=== PATIENT | male | born 1955 | race Caucasian/White ===

== ENCOUNTER 2022-03-18 16:26 | Inpatient (IN) | payer OTHER, MEDICAID ==
[2022-03-18] VITALS (10 sets, daily range): BP systolic 112–163; BP diastolic 57–97
[~2022-03-18] VITALS: Ht 177.8 cm; Wt 90.1 kg
[2022-03-18] MEDS ORDERED: HEPARIN for IV BOLUS 10,000 UNIT/10 ML VIAL. ONE (16:45)
[2022-03-18] MEDS ORDERED: MIDAZOLAM HCL/PF 2 MG/2 ML VIAL. ONE (16:45)
[2022-03-18] MEDS ORDERED: NITROGLYCERIN 200 MCG/2 ML SYRINGE FOR CATH/VASC LAB. ONE (16:45)
[2022-03-18] MEDS ORDERED: VERAPAMIL 5 MG/2 ML VIAL. ONE (16:45)
[2022-03-18] MEDS ORDERED: fentaNYL PF VIAL 100 MCG/2 ML VIAL ONE (16:45)
[2022-03-18] MEDS ORDERED: IODIXANOL 320 MG/ML 100 ML VIAL. ONE ×2 (16:46→16:47)
[2022-03-18] MEDS ORDERED: LIDOCAINE 1% Multi-Dose 20 ML VIAL. ONE (16:46)
[2022-03-18 16:51] LABS: BASO # 0.1 x10^3/uL (0.0-0.2); BASO % 1 % (0-3); EOS # 0.1 x10^3/uL (0.0-0.7); EOS % 1 % (0-3); HEMATOCRIT 50.5 % (39.0-53.0); HEMOGLOBIN 16.6 g/dL (13.0-17.5); LYMPH # 2.9 x10^3/uL (1.0-4.8); LYMPH % 28 % (24-48); MEAN CORPUSCULAR HEMOGLOBIN 29 pg (25-35); MEAN CORPUSCULAR HGB CONC 33 g/dL (31-37); MEAN CORPUSCULAR VOLUME 89 fL (79-100); MONO # 0.6 x10^3/uL (0.0-1.1); MONO % 6 % (0-9); NEUT # 6.9 x10^3/uL (1.8-7.7); NEUT % 64 % (31-73); PLATELET COUNT 356 x10^3/uL (140-400); RED BLOOD COUNT 5.65 x10^6/uL (4.30-5.70); RED CELL DISTRIBUTION WIDTH 13.7 % (11.5-14.5); WHITE BLOOD COUNT 10.7 x10^3/uL (4.0-11.0)
--- NOTE | 2022-03-18 16:56 | RAD ---
EXAM: CT head without contrast INDICATION: Head trauma COMPARISON: None TECHNIQUE: Axial CT imaging through the head without intravenous contrast. Sagittal and coronal refor mats were obtained. One or more of the following individualized dose reduction techniques were utilized for this examinat ion: 1. Automated exposure control 2. Adjustment of the mA and/or kV according to patient size 3. Use of iterative reconstruction technique. FINDINGS: No intracranial hemorrhage, acute infarct, or mass lesion. Ventricles and sulci are prominent. Muñoz-w franco matter differentiation is maintained. The skull and scalp are intact. Paranasal sinuses and mast oid air cells are clear. Globes and orbits are intact. IMPRESSION: No acute intracranial abnormality. Electronically signed by: Liliana Mcdermott MD (03/18/2022 4:54 PM) [id number]
[2022-03-18 16:59] LABS: PROTHROMBIN TIME PATIENT 13.1 SEC (11.7-14.0)
[2022-03-18] MEDS ORDERED: PHENYLEPHRINE in 0.9% NACL PF 1 MG/10 ML SYRINGE. IV ONE (17:08)
[2022-03-18] MEDS ORDERED: ATROPINE 1 MG/10 ML DISP.SYRINGE. ONE (17:08)
[2022-03-18] MEDS ORDERED: TIROFIBAN 12.5MG -0.9% NS 250 ML IV ONE (17:09)
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
[2022-03-18 17:10] LABS: CALCIUM 9.3 mg/dL (8.5-10.1); CREATININE 2.4 mg/dL (0.7-1.3); GFR 27.1
[2022-03-18] MEDS: TIROFIBAN 12.5MG -0.9% NS 250 ML IV PRN (17:15)
[2022-03-18 17:20] LABS: ALBUMIN 4.1 g/dL (3.4-5.0); TOTAL BILIRUBIN 1.1 mg/dL (0.2-1.0); TOTAL PROTEIN 8.1 g/dL (6.4-8.2)
[2022-03-18] MEDS ORDERED: PRASUGREL 10 MG TABLET. ONE (17:22)
[2022-03-18] MEDS ORDERED: VERAPAMIL 5 MG/2 ML VIAL. IART ONE (17:30)
[2022-03-18] MEDS ORDERED: fentaNYL PF VIAL 100 MCG/2 ML VIAL IV ONE (17:30)
[2022-03-18] MEDS ORDERED: NITROGLYCERIN 200 MCG/2 ML SYRINGE FOR CATH/VASC LAB. IART ONE (17:30)
[2022-03-18] MEDS ORDERED: LIDOCAINE 2% Multi-Dose 20 ML VIAL. IJ ONE (17:30)
[2022-03-18] MEDS ORDERED: MIDAZOLAM HCL/PF 2 MG/2 ML VIAL. IV ONE (17:30)
[2022-03-18] MEDS ORDERED: IODIXANOL 320 MG/ML 100 ML VIAL. IART ONE (17:30)
[2022-03-18] MEDS ORDERED: NITROGLYCERIN 200 MCG/2 ML SYRINGE FOR CATH/VASC LAB. ICAR ONE (17:30)
[2022-03-18] MEDS ORDERED: PRASUGREL 10 MG TABLET. PO ONE (17:30)
[2022-03-18] MEDS ORDERED: HEPARIN for IV BOLUS 10,000 UNIT/10 ML VIAL. IART ONE (17:30)
[2022-03-18] MEDS ORDERED: HEPARIN for IV BOLUS 10,000 UNIT/10 ML VIAL. IV ONE (17:30)
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
--- NOTE | 2022-03-18 18:48 | NUR ---
Patient arrived on unit at 1755 accompanied by scientific laboratory supervisor RN and tech. Patient alert and oriented, able to answer admission questions when asked. Patient educated on TR band use and not to use his right hand. Vascular site looks clean dry and intact, TR band in place. Family at bedside.
[2022-03-19] VITALS (13 sets, daily range): BP systolic 109–179; BP diastolic 66–99
[2022-03-19] MEDS: TIROFIBAN 12.5MG -0.9% NS 250 ML IV PRN (02:25)
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
[2022-03-19] MEDS ORDERED: hydrALAZINE 20 MG/ML VIAL. IVP PRN (08:00)
[2022-03-19] MEDS ORDERED: ONDANSETRON PF 4 MG/2 ML VIAL. IVP PRN (08:00)
[2022-03-19] MEDS ORDERED: NICOTINE 21MG PATCH. TD PRN (08:00)
[2022-03-19] MEDS ORDERED: traMADol 50 MG TABLET PO PRN (08:00)
[2022-03-19] MEDS ORDERED: ACETAMINOPHEN 325 MG TABLET. PO PRN (08:00)
--- NOTE | 2022-03-19 08:14 | CARD ---
MR#: [id number] Date of Study: 03/18/2022 Ordering Physician: DANIELA ARREDONDO, Referring Physician: DANIELA ARREDONDO, Tech: RT Dilcia(R) APPROVED REPORT Technologist: Navya Walter RT(R) Nurse: Priti Herndon RN Procedure(s) performed: fl time: 5.5 min dose: 48 gycm2 contrast: 62 ml moderate sedation: 35 min LHC, Coronary angiography PCI of the RCA for acute LA INDICATION The indication(s) include : STEMI . [facility] Clinical Frailty Scale [facility] Clinical Frailty Scale: Moderately Frail Heart Failure Heart Failure: Yes If Yes, Newly Diagnosed: Yes If Yes, HF Type: Diastolic Systolic If Yes, NYHA Class: Class III CASE TECHNIQUE IV conscious sedation was used throughout procedure with appropriate monitoring and was performed in the presence of a registered nurse who was an independent trained observer other than the physician p erforming the procedure. During this case, Fluoroscopy and Iso-osmolar contrast were used for imaging . Specimen(s) Removed: N/A Estimated Blood loss: 10 cc's. PROCEDURE NARRATIVE Clinical information: 66-year-old male without significant past medical history presented with acute chest pain and syncopa l episode. Patient was found to have inferolateral ST elevation LA and he was taken emergently to [facility] catheterization laboratory after appropriate informed verbal consent. Procedure details: Under 1% lidocaine local anesthesia a 6 [place]ambian sheath was placed in the right radial artery. Diagnos tic angiography was then performed with a 6 [place]ian TIG catheter. Left ventricular end-diastolic pres sure was obtained with a JR4 guide catheter and a pullback was performed. Findings: Aorta 90/60 LVEDP 25 mmHg No LV to aortic pullback gradient Coronary angiography: Left main is a short caliber vessel with normal angiographic appearance LAD is a moderate caliber vessel with proximal 50% stenosis Left circumflex is a small caliber nondominant vessel with mild diffuse irregularities up to 30% RCA is a large-caliber dominant vessel with a mid 100% occlusion. RPDA and RPL are large caliber ves sels with mild luminal irregularities Interventional technique: Heparin and Tirofiban was used for anticoagulation. Through a 6fr JR 4 guide catheter, a 0.014'' Prow ater wire was used to cross the occlusion. Balloon angioplasty was performed with a 3.0/15 mm balloon and the lesion was stented with a 4.0 x 38 Resolute MELODY. The stent was then post-dilated in the prox imal segment with a 4.5mm non-compliant balloon. Final angiography demonstrated excellent stent expan anand with REEMA 3 flow in the vessel without evidence of guide or wire related complications. At case completion the radial sheath was removed and hemostasis was achieved with a radial band. The patient received 60mg of Prasugrel at case completion. No acute complications. REEMA Flow REEMA Flow (Pre-Intervention): REEMA-0 REEMA Flow (Post-Intervention): REEMA-3 Conclusion 1. Inferior STEMI 2. Successful PCI of the RCA with implantation of a Resolute 4.0/38 MELODY. 3. Acute diastolic HF with LVEDP of 25 mm Hg. Recommendations ASA 81mg daily Prasugrel 10mg daily High dose statin therapy Cardiac rehab Signed by : Daniela Arredondo, Electronically Approved : 03/19/2022 08:14:13
[2022-03-19 08:46] LABS: ALBUMIN 3.6 g/dL (3.4-5.0); CALCIUM 9.1 mg/dL (8.5-10.1); CREATININE 1.9 mg/dL (0.7-1.3); GFR 35.4; POTASSIUM 4.4 mmol/L (3.5-5.1); TOTAL BILIRUBIN 0.8 mg/dL (0.2-1.0); TOTAL PROTEIN 7.3 g/dL (6.4-8.2)
[2022-03-19 08:51] LABS: CHOLESTEROL/HDL RATIO 5.1
[2022-03-19] MEDS ORDERED: IV DEXTROSE 5% 250 ML BAG. IV PRN (09:45)
[2022-03-19] MEDS ORDERED: PANTOPRAZOLE 40 MG TABLET.DR. PO ONE (09:45)
[2022-03-19] MEDS ORDERED: DEXTROSE 50% 25 GM / 50ML DISP.SYRIN. IV PRN (09:45)
[2022-03-19] MEDS ORDERED: PRASUGREL 10 MG TABLET. PO ONE (09:45)
[2022-03-19] MEDS: ASPIRIN ENTERIC COATED 81 MG TABLET.DR. PO SCH (09:52)
[2022-03-19] MEDS: INSULIN LISPRO 300 UNITS/3 ML VIAL. SQ SCH ×3 (11:30→21:00)
--- NOTE | 2022-03-19 18:38 | PDOC ---
CARDIOLOGY PROGRESS NOTE SUBJECTIVE: No new events. Feels well OBJECTIVE: Vital Signs/I&O: Vital Signs Date Time Temp Pulse Resp B/P (MAP) Pulse Ox O2 Delivery O2 Flow Rate FiO2 03/19/22 15:00 98.6 67 23 109/84 (92) 96 Room Air 98.6 03/18/22 17:51 2.0 I & O 03/18/22 03/18/22 03/19/22 15:00 23:00 07:00 Intake Total 250 ml 400 ml Output Total 0 ml 200 ml Balance 250 ml 200 ml Objective: GEN.: No apparent distress. Alert and oriented. HEENT: Head is normocephalic, atraumatic NECK: Supple. LUNGS: Clear to auscultation. HEART: RRR, S1, S2 present. Peripheral pulses intact ABDOMEN: Soft, nontender. Positive bowel sounds. EXTREMITIES: Without any cyanosis. NEUROLOGIC: Normal speech, normal tone PSYCHIATRIC: Normal affect, normal mood. SKIN: No ulcerations CURRENT MEDICATIONS: Current Medications Medications (Trade) Dose Ordered Sig/Shireen Route PRN Reason Start Time Stop Time Status Last Admin Dose Admin Aspirin (Ecotrin) 81 mg DAILYWBKFT PO 03/19/22 09:30 03/19/22 09:52 Amlodipine Besylate (Norvasc) 10 mg 1X ONCE PO 03/19/22 09:30 03/19/22 09:36 DC 03/19/22 09:52 Pantoprazole Sodium (Protonix) 40 mg 1X ONCE PO 03/19/22 09:45 03/19/22 09:46 DC 03/19/22 09:52 Prasugrel (Effient) 10 mg 1X ONCE PO 03/19/22 09:45 03/19/22 09:48 DC 03/19/22 09:52 DIAGNOSTIC TESTING: Labs reviewed Labs: Laboratory Tests 03/19/22 04:00 Laboratory Tests Test 03/19/22 04:00 03/19/22 17:42 Sodium Level 139 mmol/L (136-145) Potassium Level 4.4 mmol/L (3.5-5.1) Chloride Level 105 mmol/L (98-107) Carbon Dioxide Level 21 mmol/L (21-32) Anion Gap 13 (6-14) Blood Urea Nitrogen 25 mg/dL (8-26) Creatinine 1.9 mg/dL (0.7-1.3) H Estimated GFR (Cockcroft-Gault) 35.4 BUN/Creatinine Ratio 13 (6-20) Glucose Level 131 mg/dL (70-99) H Calcium Level 9.1 mg/dL (8.5-10.1) Total Bilirubin 0.8 mg/dL (0.2-1.0) Aspartate Amino Transf (AST/SGOT) 415 U/L (15-37) H Alkaline Phosphatase 67 U/L (46-116) Troponin I High Sensitivity 149172 ng/L (4-75) H Total Protein 7.3 g/dL (6.4-8.2) Albumin 3.6 g/dL (3.4-5.0) Albumin/Globulin Ratio 1.0 (1.0-1.7) Cholesterol Level 173 mg/dL (0-200) LDL Cholesterol, Calculated 123 mg/dL (0-100) H VLDL Cholesterol, Calculated 16 mg/dL (0-40) Non-HDL Cholesterol Calculated 139 mg/dL (0-129) H Cholesterol/HDL Ratio 5.1 Glucose (Fingerstick) 113 mg/dL (70-99) H ASSESSMENT: 1. Inferior STEMI 2. GINA 3. HTN PLAN: 1. Continue asa, statin, prasurgrel and amlodipine. 2. Check echo in a.m and repeat EKG. Supportive care. Justicifation of Admission Dx: Justifications for Admission: Justification of Admission Dx: N/A DANIELA SOARES MD March 19, 2022 18:38
[2022-03-19] MEDS ORDERED: ATORVASTATIN CALCIUM 40 MG TABLET. PO SCH (21:00)
[2022-03-20 03:00] VITALS: BP 121/75
[2022-03-20 03:08] LABS: HEMOGLOBIN A1C 5.5 % (4.8-5.6)
--- NOTE | 2022-03-20 06:05 | EKG ---
[facility] [address] [place] [address] Test Date: 2022-03-18 Test Time: 16:29:23 Pat Name: MONICA MEYERS Department: Room: [facility] 1 Gender: M Supervisor [employer]: : 1955 Requested By: AMRILIA RODGERS Order Number: [id number] Reading MD: Zion Arredondo MD Measurements Intervals Madeline Rate: 67 P: MN: QRS: 37 QRSD: 82 T: 105 QT: 380 QTc: 404 Interpretive Statements SR INFERIOR STEMI Electronically Signed On 03-27-2022 9:54:29 CDT by Zion Arredondo MD
[2022-03-20 07:00] VITALS: BP 120/71
[2022-03-20] MEDS: INSULIN LISPRO 300 UNITS/3 ML VIAL. SQ SCH ×2 (07:30→11:25)
[2022-03-20] MEDS ORDERED: PRASUGREL 10 MG TABLET. PO SCH (08:00)
[2022-03-20] MEDS: ASPIRIN ENTERIC COATED 81 MG TABLET.DR. PO SCH (08:13)
--- NOTE | 2022-03-20 09:32 | PDOC ---
NAYE CONTRERAS APRN 03/20/22 0932: CARDIO Progress Notes Date and Time Date of Service 03/20/22 Time of Evaluation 0930 Subjective Subjective: No Chest Pain, No shortness of breath, No Palpitations Vitals Vitals Vital Signs Date Time Temp Pulse Resp B/P (MAP) Pulse Ox O2 Delivery O2 Flow Rate FiO2 03/20/22 08:13 79 120/71 03/20/22 07:38 Room Air 03/20/22 07:00 98.5 34 100 98.5 Weight Weight [ ] Input and Output Intake and Output Intake and Output 03/20/22 07:00 Intake Total 1450 ml Output Total 900 ml Balance 550 ml Intake Oral 1450 ml Output Urine Total 900 ml # Voids 1 # Bowel Movements 2 Laboratory Labs Laboratory Tests Test 03/19/22 17:42 03/19/22 21:01 Glucose (Fingerstick) 113 mg/dL (70-99) 123 mg/dL (70-99) Physical Exam HEENT: Neck Supple W Full Motion Chest: Symmetric LUNGS: Clear to Auscultation Heart: S1S2, RRR Abdomen: Soft N/T Extremities: Other (right radial arteriotomy site soft, clean, and dry. No hematoma present. Neurovascular status intact ) Neurology: alert, oriented, follow commands Assessment Assessment 1. Inferior STEMI 2. CAD s/p PCI/MELODY to RCA 3. Acute diastolic CHF; appears compensated 4. GINA; Cr down to 1.9 5. HTN 6. Dyslipidemia; statin 7. Mild transaminitis Recommendations Echo today Secondary prevention Continue asa, statin, prasurgrel and amlodipine. Add BB Risk stratification modification Cardiac rehab referral Follow up in our office as scheduled Okay to discharge later today follow echo, EKG Justicifation of Admission Dx: Justifications for Admission: Justification of Admission Dx: N/A DANIELA SOARES MD 03/21/22 0855: CARDIO Progress Notes Plan Plan Late entry for 03/20/2022 Patient seen and examined. Agree with above nurse practitioner note NAYE CONTRERAS APRN March 20, 2022 09:32 DANIELA SOARES MD March 21, 2022 08:55
[2022-03-20] MEDS ORDERED: METOPROLOL SUCC 24HR ER 25 MG TAB.ER.24H. PO SCH (10:30)
[2022-03-20] MEDS ORDERED: ATOR40TA59 PO (10:58)
[2022-03-20] MEDS ORDERED: ASPI-886 PO (10:58)
[2022-03-20] MEDS ORDERED: AMLO-186 PO (10:58)
[2022-03-20] MEDS ORDERED: PRAS10TA9 PO (10:58)
[2022-03-20] MEDS ORDERED: METO-239 PO (10:58)
[2022-03-20 11:00] VITALS: BP 134/70
--- NOTE | 2022-03-20 11:43 | PDOC ---
[facility] PROGRESS NOTE Date of Service DOS: DATE: 03/20/22 TIME: 11:43 Chief Complaint Chief Complaint Acute OR Status post cardiac stent in the RCA History of Present Illness History of Present Illness 03/20/2020 Patient seen and examined Discussed with RN Discussed with case management Chart reviewed The plan is to discharge this afternoon Vitals/I&O Vitals/I&O: Vital Signs Date Time Temp Pulse Resp B/P (MAP) Pulse Ox O2 Delivery O2 Flow Rate FiO2 03/20/22 11:00 98.4 74 24 134/70 (91) 100 Room Air 98.4 I & O 03/19/22 03/19/22 03/20/22 15:00 23:00 07:00 Intake Total 750 ml 300 ml 400 ml Output Total 300 ml 600 ml Balance 450 ml -300 ml 400 ml Physical Exam General: Alert, Oriented X3, Cooperative, No acute distress Abdomen: Normal bowel sounds, Soft, No tenderness, No hepatosplenomegaly, No masses, Other (Midline scarred sternum to pelvis) Extremities: No clubbing, No cyanosis, No edema, Normal pulses, No tenderness/swelling Skin: No rashes, No breakdown, No significant lesion Labs Labs: Laboratory Tests Test 03/19/22 17:42 03/19/22 21:01 Glucose (Fingerstick) 113 mg/dL (70-99) 123 mg/dL (70-99) Assessment and Plan Assessmemt and Plan Problems Medical Problems: (1) STEMI (ST elevation myocardial infarction) Status: Acute Discharge see dictation Comment Review of Relevant I have reviewed the following items jazzmine (where applicable) has been applied. Medications: Current Medications Medications (Trade) Dose Ordered Sig/Shireen Route PRN Reason Start Time Stop Time Status Last Admin Dose Admin Prasugrel (Effient) 10 mg DAILYWBKFT PO 03/20/22 08:00 03/20/22 08:13 Atorvastatin Calcium (Lipitor) 40 mg QHS PO 03/19/22 21:00 03/19/22 20:57 Amlodipine Besylate (Norvasc) 10 mg DAILY PO 03/20/22 09:00 03/20/22 09:32 DC 03/20/22 08:13 Metoprolol Succinate (Toprol Xl) 25 mg DAILY PO 03/20/22 10:30 03/20/22 10:14 Justifications for Admission Other Justification CASTLE,NIAL K III DO March 20, 2022 11:43
[2022-03-20 15:00] VITALS: BP 133/84
--- NOTE | 2022-03-20 16:33 | NUR ---
After echocardiogram completion, Dr. Arredondo gave the approval for patient to discharge. Medications called to patient's pharmacy and are ready to be picked up upon discharge. Post cardiac cath instructions given to patient, patient's sister, Alicia, and patient's niece, Lucille, emphasis given on medication regimen. Patient given a card for Dr. Arredondo with the follow up appointment date on it. Patient discharged at 1630 accompanied by family.
--- NOTE | 2022-03-20 17:10 | CARD ---
MR#: [id number] Date of Study: 03/20/2022 Ordering Physician: NAYE CONTRERAS, Referring Physician: NAYE CONTRERAS, Tech: Tristin Romero [facility] APPROVED REPORT EXAM: Two-dimensional and M-mode echocardiogram with Doppler and color Doppler. Other Information Quality : FairHR: 80bpm Rhythm : NSRTechnically limited study due to body habitus. INDICATION Cardiac Disease: CAD Inferior wall STEMI RISK FACTORS Hypertension Hyperlipidemia Smoking 2D DIMENSIONS Left Atrium(2D)3.5 (1.6-4.0cm)IVSd1.0 (0.7-1.1cm) Aortic Root(2D)3.0 (2.0-3.7cm)LVDd4.8 (3.9-5.9cm) LVOT Diameter2.0 (1.8-2.4cm)PWd1.0 (0.7-1.1cm) LVDs4.0 (2.5-4.0cm)FS (%) 16.1 % SV35.7 mlLVEF(%)33.9 (>50%) Aortic Valve AoV Peak Tomas.95.8cm/sAoV VTI17.6cm AO Peak GR.3.7mmHgLVOT VTI 14.37cm AO Mean GR.2mmHg Mitral Valve MV E Vdnbkduz10.4cm/sMV DECEL [id number] MV A Fxaoykna94.5cm/sE/A Ratio1.0 TDI Lateral E' P. V6.95cm/sMedial E' P. V5.60cm/s E/Lateral E'8.8E/Medial E'11.0 Pulmonary Valve PV Peak Zmiiyacn551.4cm/s Tricuspid Valve TR P. Osnodsvv887cn/sTR Peak Gr.29mmHg LEFT VENTRICLE The left ventricle is normal size. There is normal left ventricular wall thickness. The left ventricu lar systolic function is mildly decreased. EF 45-50% There is inferior wall hypokinesis. Tissue Doppl er imaging reveals moderate left ventricular diastolic dysfunction. No left ventricle thrombus noted on this study. There is no ventricular septal defect visualized. There is no left ventricular aneurys m. There is no mass noted in the left ventricle. RIGHT VENTRICLE The right ventricle is mildly dilated. There is normal right ventricular wall thickness. The right ve ntricular systolic function is normal. ATRIA The left atrium size is normal. The right atrium size is normal. The interatrial septum is intact wit h no evidence for an atrial septal defect or patent foramen ovale as noted on 2-D or Doppler imaging. AORTIC VALVE The aortic valve is normal in structure and function. Doppler and Color Flow revealed no significant aortic regurgitation. There is no significant aortic valvular stenosis. There is no aortic valvular v egetation. MITRAL VALVE The mitral valve is normal in structure and function. There is no evidence of mitral valve prolapse. There is no mitral valve stenosis. Doppler and Color-flow revealed trace mitral regurgitation. TRICUSPID VALVE The tricuspid valve is normal in structure and function. Doppler and Color Flow revealed trace tricus pid regurgitation. There is no tricuspid valve prolapse or vegetation. There is no tricuspid valve st enosis. PULMONIC VALVE Doppler and Color Flow revealed no pulmonic valvular regurgitation. There is no pulmonic valvular victor manuel nosis. GREAT VESSELS The aortic root is normal in size. The ascending aorta is normal in size. The pulmonary artery is nor mal. The IVC is normal in size and collapses >50% with inspiration. PERICARDIAL EFFUSION There is no pleural effusion. There is no evidence of significant pericardial effusion. Critical Notification Critical Value: No <Conclusion> The left ventricular systolic function is mildly decreased. EF 45-50% There is inferior wall hypokinesis. Signed by : Zion Arredondo, Electronically Approved : 03/20/2022 17:10:32
--- NOTE | 2022-03-20 20:36 | DS ---
DATE OF DISCHARGE: 03/20/2022 ADMITTING DIAGNOSIS: Acute myocardial infarction. DISCHARGE DIAGNOSES: 1. Status post cardiac catheterization with stent placement to the RCA. 2. Elevated troponin to 155,853. CONSULTS: Cardiology. PROCEDURES: Cardiac catheterization. HOSPITAL COURSE: The patient is a pleasant middle-aged male who presented with chest pain, was noted to have EKG changes and elevated troponin. He was admitted. We have consulted Cardiology, was taken for a cath and he got a stent to the RCA. His initial troponin was 13, that raised to as high as 155,000. Today, when I saw him, he is doing great and he is tolerating his meals and his pills. We plan to discharge. DISPOSITION: Home. ACTIVITY: As tolerated. DIET: Cardiac. MEDICATIONS: Amlodipine 5 a day, aspirin 81 a day, atorvastatin 40 a day, metoprolol 25 a day and Effient [address]: Sue TID: [id number]
== END 2022-03-20 16:30 | disposition home or self-care (01) | DRG 246 ==
LOC: ER 16:26 → 1 WEST ICU 17:09
PROVIDERS: ADMIT Internal Medicine; ATTEND Internal Medicine
PROC: 027034Z Dilation of Coronary Artery, One Artery with Drug-eluting Intraluminal Device, Percutaneous Approach (ICD-10-PCS; principal; 2022-03-19)
PROC: 3E033PZ Introduction of Platelet Inhibitor into Peripheral Vein, Percutaneous Approach (ICD-10-PCS; 2022-03-19)
PROC: 4A023N7 Measurement of Cardiac Sampling and Pressure, Left Heart, Percutaneous Approach (ICD-10-PCS; 2022-03-19)
PROC: B2111ZZ Fluoroscopy of Multiple Coronary Arteries using Low Osmolar Contrast (ICD-10-PCS; 2022-03-19)
DX: I21.19 ST elevation (STEMI) myocardial infarction involving other coronary artery of inferior wall (principal); I50.31 Acute diastolic (congestive) heart failure; N17.0 Acute kidney failure with tubular necrosis; R65.11 Systemic inflammatory response syndrome (SIRS) of non-infectious origin with acute organ dysfunction; E78.5 Hyperlipidemia, unspecified; I11.0 Hypertensive heart disease with heart failure; I25.10 Atherosclerotic heart disease of native coronary artery without angina pectoris; I25.2 Old myocardial infarction; Z83.3 Family history of diabetes mellitus; Z95.5 Presence of coronary angioplasty implant and graft; R74.01 Elevation of levels of liver transaminase levels
CPT/HCPCS: 36415; 70450; 80053; 80061; 82962; 83036; 83735; 83880; 84484; 85025; 85610; 92941; 93005; 93306; 93458; 96374; 96375; 99152; 99153; C1725; C1769; C1874; C1894; J1644; J1815; J2250; J3010; J3490; Q9967; 99285-25; C8929; G0378; J3246